=== PATIENT | female | born 1945 | race Caucasian/White ===

== ENCOUNTER 2018-06-29 13:56 | Inpatient (IN) | payer MEDICARE, OTHER ==
[~2018-06-29] VITALS: Ht 167.6 cm; Wt 97.8 kg
[~2018-06-29 13:56] MED LIST: ALBU90AE INH; ALPR-475 PO; ASPI-621 PO; ATOR20TA9 PO; ATOR40TA78 PO; CARV6.2512 PO; DEXA10PO2 PO; ISOS30TA8 PO; LEVE500T8 PO; LEVO137T2 PO; OXYB5TAB PO; PARO40TA61 PO; SULF1TAB24 PO; TEMO140C5 PO
[2018-06-29 14:48] LABS: BASOPHILS # (AUTO) 0.05 x10^3/uL (0-0.1); BASOPHILS % (AUTO) 0 % (0-1); EOSINOPHILS % (AUTO) 3 % (1-7); LYMPHOCYTES # (AUTO) 0.97 x10^3/uL (1-3.4); LYMPHOCYTES % (AUTO) 8 % (22-44); MD NO; MEAN CORPUSCULAR HGB CONC 34.9 g/dL (32.4-35.8); MEAN CORPUSCULAR VOLUME 91.6 fL (80-100); MEAN PLATELET VOLUME 8.1 fL (7.4-10.4); MONOCYTES # (AUTO) 0.87 x10^3/uL (0.2-0.8); MONOCYTES % (AUTO) 7 % (2-9); NEUTROPHILS # (AUTO) 9.93 x10^3/uL (1.8-6.8); NEUTROPHILS % (AUTO) 82 % (42-75); PLATELET COUNT 266 x10^3/uL (130-400); RED BLOOD COUNT 5.12 x10^6/uL (3.82-5.3); RED CELL DISTRIBUTION WIDTH 14.8 % (9.6-15.2)
[2018-06-29 14:53] LABS: ALBUMIN 3.8 g/dL (3.4-5.0); ANION GAP 10 mmol/L (5-15); CALCIUM 8.3 mg/dL (8.5-10.1); CHLORIDE 104 mmol/L (98-107)
[2018-06-29 14:55] LABS: MICROSCOPIC INDICATED
[2018-06-29 14:56] LABS: CULTURE INDICATED? YES
[2018-06-29 14:59] LABS: ALANINE AMINOTRANSFERASE 30 U/L (12-78); ALKALINE PHOSPHATASE 81 U/L (45-117); CREATININE 1.16 mg/dL (0.55-1.02); TOTAL PROTEIN 7.2 g/dL (6.4-8.2); TROPONIN I < 0.015 ng/mL (0.000-0.045)
[2018-06-29] MEDS ORDERED: HYDROcodone/APAP 5/325 TABLET PO PRN (18:00)
[2018-06-29] MEDS ORDERED: POLYETHYLENE GLYCOL 17 GM PACKET PO PRN (18:00)
[2018-06-29] MEDS ORDERED: NITROGLYCERIN 0.4 MG BOTTLE (25 TABS) SL PRN (18:00)
[2018-06-29] MEDS ORDERED: HYDROmorphone 2 MG/ML, 1ML IVPush PRN (18:00)
[2018-06-29] MEDS ORDERED: ONDANSETRON 2MG/ML, 2ML IVPush PRN (18:00)
[2018-06-29] MEDS ORDERED: TEMAZEPAM 15 MG CAPSULE PO PRN (18:00)
[2018-06-29] MEDS ORDERED: ACETAMINOPHEN 325 MG TABLET PO PRN (18:00)
[2018-06-29] MEDS ORDERED: hydrALAzine 20 MG/ML, 1ML IVPush PRN (18:00)
[2018-06-29 18:12] LABS: FREE T4 (FREE THYROXINE) 1.37 ng/dL (0.76-1.46); THYROID STIMULATING HORMONE 0.553 mIU/L (0.358-3.740)
[2018-06-29] MEDS ORDERED: PLEASE ENTER HEIGHT AND WEIGHT MC SCH (18:30)
[2018-06-29 19:20] VITALS: BP 125/73
[2018-06-29] MEDS: CARVEDILOL 6.25 MG TABLET PO SCH (21:00)
[2018-06-29] MEDS: PLEASE ENTER WEIGHT MC SCH ×2 (21:00→22:00)
[2018-06-29] MEDS: ATORVASTATIN 40 MG TABLET PO SCH (21:00)
[2018-06-29] MEDS: NICOTINE 14MG/24 HR PATCH.TD24 TD SCH (21:49)
[2018-06-29] MEDS: LEVETIRACETAM 500 MG TABLET PO SCH (21:49)
[2018-06-29] MEDS: OXYBUTYNIN CHLORIDE 5 MG TABLET PO SCH (22:00)
[2018-06-29 22:23] VITALS: BP 132/75
[2018-06-29 22:30] LABS: TROPONIN I < 0.015 ng/mL (0.000-0.045)
[2018-06-29] MEDS: HEPARIN 5,000 UNITS/ML, 1ML SQ SCH (22:57)
[2018-06-29] MEDS: CEFTRIAXONE 2 GM in SODIUM CHLORIDE 0.9% 50 ML IV SCH (23:24)
[2018-06-30 01:41] VITALS: BP 128/82
[2018-06-30 04:46] LABS: ALANINE AMINOTRANSFERASE 27 U/L (12-78); ALBUMIN 3.4 g/dL (3.4-5.0); ANION GAP 8 mmol/L (5-15); CALCIUM 8.2 mg/dL (8.5-10.1); CHLORIDE 107 mmol/L (98-107); CREATININE 0.84 mg/dL (0.55-1.02)
[2018-06-30 04:55] LABS: TROPONIN I < 0.015 ng/mL (0.000-0.045)
[2018-06-30 04:56] LABS: ALKALINE PHOSPHATASE 71 U/L (45-117); BILIRUBIN,TOTAL 0.9 mg/dL (0.2-1.0); THYROID STIMULATING HORMONE 0.485 mIU/L (0.358-3.740); TOTAL PROTEIN 6.6 g/dL (6.4-8.2)
[2018-06-30] MEDS: LEVOTHYROXINE 137 MCG TABLET PO SCH (06:01)
[2018-06-30] MEDS: ASPIRIN 81 MG TABLET EC PO SCH (06:01)
[2018-06-30] MEDS: HEPARIN 5,000 UNITS/ML, 1ML SQ SCH ×3 (06:02→21:09)
[2018-06-30 06:55] VITALS: BP 138/83
[2018-06-30] MEDS: LEVETIRACETAM 500 MG TABLET PO SCH ×2 (08:03→21:08)
[2018-06-30] MEDS: OXYBUTYNIN CHLORIDE 5 MG TABLET PO SCH ×2 (08:03→21:07)
[2018-06-30] MEDS: ISOSORBIDE MONONITRATE ER 30 MG TABLET PO SCH (08:03)
[2018-06-30] MEDS: PAROXETINE 20 MG TABLET PO SCH (08:03)
[2018-06-30] MEDS: DEXAMETHASONE 1 MG TABLET PO SCH (08:03)
[2018-06-30] MEDS: CARVEDILOL 6.25 MG TABLET PO SCH ×2 (08:03→21:07)
[2018-06-30] MEDS: PANTOPROZOLE 40MG TABLET PO SCH (08:03)
[2018-06-30] MEDS ORDERED: TEMOZOLOMIDE MC SCH (08:30)
[2018-06-30] MEDS ORDERED: TEMOZOLOMIDE PO SCH (09:00)
[2018-06-30] MEDS ORDERED: SODIUM CHLORIDE 0.9% 1,000 ML IV ONE (11:03)
[2018-06-30] MEDS ORDERED: FENTANYL PF 100 MCG/2ML ONE (13:37)
[2018-06-30] MEDS ORDERED: HEPARIN 1,000 UNITS/ML, 10ML ONE (13:38)
[2018-06-30] MEDS ORDERED: BIVALIRUDIN 250 MG ONE (13:38)
[2018-06-30] MEDS ORDERED: MIDAZOLAM 1 MG/ML, 2ML ONE (13:38)
[2018-06-30] MEDS ORDERED: VERAPAMIL 2.5 MG/ML, 2ML ONE (13:38)
[2018-06-30] MEDS ORDERED: TICAGRELOR 90 MG TABLET ONE (13:38)
[2018-06-30] MEDS ORDERED: SERT100T5 PO (13:43)
[2018-06-30 14:30] VITALS: BP 122/70
[2018-06-30 20:45] VITALS: BP 129/77
[2018-06-30] MEDS: NICOTINE 14MG/24 HR PATCH.TD24 TD SCH (21:08)
[2018-06-30] MEDS: ATORVASTATIN 40 MG TABLET PO SCH (21:08)
[2018-06-30] MEDS: NYSTATIN 500,000 UNITS/5 ML UDC PO SCH (21:08)
[2018-06-30] MEDS: CEFTRIAXONE 2 GM in SODIUM CHLORIDE 0.9% 50 ML IV SCH (21:10)
[2018-07-01 00:39] VITALS: BP 119/63
[2018-07-01] MEDS: LEVOTHYROXINE 137 MCG TABLET PO SCH (05:44)
[2018-07-01] MEDS: ASPIRIN 81 MG TABLET EC PO SCH (05:44)
[2018-07-01] MEDS: HEPARIN 5,000 UNITS/ML, 1ML SQ SCH (05:44)
[2018-07-01 07:00] VITALS: BP 141/79
[2018-07-01] MEDS: NYSTATIN 500,000 UNITS/5 ML UDC PO SCH (08:24)
[2018-07-01] MEDS: PANTOPROZOLE 40MG TABLET PO SCH (08:25)
[2018-07-01] MEDS: CARVEDILOL 6.25 MG TABLET PO SCH (08:25)
[2018-07-01] MEDS: OXYBUTYNIN CHLORIDE 5 MG TABLET PO SCH (08:25)
[2018-07-01] MEDS: DEXAMETHASONE 1 MG TABLET PO SCH (08:25)
[2018-07-01] MEDS: ISOSORBIDE MONONITRATE ER 30 MG TABLET PO SCH (08:25)
[2018-07-01] MEDS: LEVETIRACETAM 500 MG TABLET PO SCH (08:25)
[2018-07-01] MEDS: PAROXETINE 20 MG TABLET PO SCH (08:33)
[2018-07-01] MEDS ORDERED: NICO-486 TD (11:15)
[2018-07-01] MEDS ORDERED: METO25TA35 PO (11:15)
[2018-07-01] MEDS ORDERED: PANT40TA5 PO (11:15)
[2018-07-01] MEDS ORDERED: NYST1000 PO (11:15)
[2018-07-01] MEDS ORDERED: CEFTRIAXONE 2 GM in SODIUM CHLORIDE 0.9% 50 ML IV SCH (12:00)
[2018-07-01] MEDS ORDERED: CEFTRIAXONE 2 GM in SODIUM CHLORIDE 0.9% 100 ML IV SCH (12:00)
[2018-07-01 13:45] VITALS: BP 125/79
== END 2018-07-01 14:10 | disposition home or self-care (01) | DRG 286 ==
LOC: ED 17:01 → EDIP 17:02 → ED 17:21 → 5SO 18:14 → DCLOUNGE 07-01 14:02
PROVIDERS: ADMIT Internal Medicine; ATTEND Internal Medicine
PROC: 4A023N7 Measurement of Cardiac Sampling and Pressure, Left Heart, Percutaneous Approach (ICD-10-PCS; principal; 2018-06-30)
PROC: B2111ZZ Fluoroscopy of Multiple Coronary Arteries using Low Osmolar Contrast (ICD-10-PCS; 2018-06-30)
PROC: B2151ZZ Fluoroscopy of Left Heart using Low Osmolar Contrast (ICD-10-PCS; 2018-06-30)
DX: I20.9 Angina pectoris, unspecified (principal); N17.0 Acute kidney failure with tubular necrosis; N39.0 Urinary tract infection, site not specified; C71.9 Malignant neoplasm of brain, unspecified; E66.01 Morbid (severe) obesity due to excess calories; E78.5 Hyperlipidemia, unspecified; E89.0 Postprocedural hypothyroidism; F17.210 Nicotine dependence, cigarettes, uncomplicated; F32.9 Major depressive disorder, single episode, unspecified; G89.29 Other chronic pain; I25.2 Old myocardial infarction; J44.9 Chronic obstructive pulmonary disease, unspecified; R32 Unspecified urinary incontinence; Z66 Do not resuscitate; Z80.0 Family history of malignant neoplasm of digestive organs; Z82.49 Family history of ischemic heart disease and other diseases of the circulatory system; Z85.841 Personal history of malignant neoplasm of brain; Z85.850 Personal history of malignant neoplasm of thyroid; Z90.710 Acquired absence of both cervix and uterus; Z92.21 Personal history of antineoplastic chemotherapy; Z92.3 Personal history of irradiation; Z68.34 Body mass index [BMI] 34.0-34.9, adult
CPT/HCPCS: 36415; 71045; 80053; 81001; 83880; 84439; 84443; 84484; 85025; 85379; 87040; 87086; 93005; 93458; 99156; 99285; C1769; C1894; J0583; J0696; J1644; J2250; J3010; J7030; Q9967

== ENCOUNTER 2019-02-28 20:03 | Inpatient (IN) | payer MEDICARE, OTHER ==
[~2019-02-28] VITALS: Ht 172.7 cm; Wt 105.0 kg
[~2019-02-28 20:03] MED LIST changes: -ASPI-621 PO; +ASPI81TA45 PO; +ATOR20TA37 PO; -ATOR20TA9 PO; +METO25TA35 PO; +NICO-486 TD; +NYST1000 PO; +PANT40TA5 PO; +SERT100T32 PO
[2019-02-28] MEDS ORDERED: LORA10TA75 PO (20:19)
[2019-02-28] MEDS ORDERED: REGO40TA PO (20:19)
--- NOTE | 2019-02-28 20:20 | NUR ---
TASK RN: CHRISTINA VELASQUEZ FOR C/O LEFT RIB PAIN AFTER A GLF. FALL WITNESSED BY GRANDSON WHO KEPT PT. FROM HITTING HER HEAD DURING THE FALL. PT. REPORTS "I GOT DIZZY AND FELL". HX OF GLIOBLASTOMA. A&O X 3 AND AT BASELINE. GROSS NEUOR INTACT. IV PLACED EN ROUTE BY EMS. DAUGHTER AT BS IS POA. PT. REPORTS PAIN IS 5/10 AT IT'S WORST BUT WHEN SITTING STILL ONLY 1/10. CONTINUOUS PULSE OX, B/P, AND HEART MONITORS PLACED. CALL LIGHT IN REACH. ALL SAFETY MEASURES OBSERVED. REPORT TO WILLIE SUTHERLAND RN TO ASSUME PT. CARE.
--- NOTE | 2019-02-28 20:35 | NUR ---
AT BEDSIDE FOR ASSESSMENT. REPORT RECEIVED FROM ARIANNA BENÍTEZ, ASSUMING CARE OF PT.
--- NOTE | 2019-02-28 20:48 | NUR ---
PT TAKEN TO CT
[2019-02-28] MEDS ORDERED: SODIUM CHLORIDE FLUSH 10ML SYR IVF ONE (21:00)
--- NOTE | 2019-02-28 21:03 | NUR ---
BACK FROM CT. PT REPORTING RIGHT FOOT CRAMPING, WARM BLANKET APPLIED. WILL CONTINUE TO MONITOR. FAMILY AT BEDSIDE. CALL LIGHT WITHIN REACH
[2019-02-28 21:24] LABS: BASOPHILS # (AUTO) 0.04 x10^3/uL (0-0.1); BASOPHILS % (AUTO) 0 % (0-1); EOSINOPHILS # (AUTO) 0.04 x10^3/uL (0-0.4); EOSINOPHILS % (AUTO) 0 % (1-7); LYMPHOCYTES # (AUTO) 1.26 x10^3/uL (1-3.4); LYMPHOCYTES % (AUTO) 12 % (22-44); MD NO; MEAN CORPUSCULAR HEMOGLOBIN 29.1 pg (27.0-34.8); MEAN CORPUSCULAR HGB CONC 32.7 g/dL (32.4-35.8); MEAN CORPUSCULAR VOLUME 89.2 fL (80-100); MEAN PLATELET VOLUME 7.6 fL (7.4-10.4); MONOCYTES # (AUTO) 0.66 x10^3/uL (0.2-0.8); MONOCYTES % (AUTO) 6 % (2-9); NEUTROPHILS # (AUTO) 8.89 x10^3/uL (1.8-6.8); NEUTROPHILS % (AUTO) 82 % (42-75); PLATELET COUNT 285 x10^3/uL (130-400); RED BLOOD COUNT 4.46 x10^6/uL (3.82-5.3)
[2019-02-28 21:38] LABS: ALANINE AMINOTRANSFERASE 38 U/L (12-78); ALBUMIN 3.4 g/dL (3.4-5.0); ANION GAP 7 mmol/L (5-15); CALCIUM 8.5 mg/dL (8.5-10.1); CHLORIDE 104 mmol/L (98-107); CREATININE 0.96 mg/dL (0.55-1.02)
[2019-02-28 21:43] LABS: ALKALINE PHOSPHATASE 75 U/L (45-117); BILIRUBIN,TOTAL 0.8 mg/dL (0.2-1.0); TOTAL PROTEIN 6.4 g/dL (6.4-8.2); TROPONIN I < 0.015 ng/mL (0.000-0.045)
--- NOTE | 2019-02-28 21:46 | NUR ---
ALL RESULTS BACK AT THIS TIME, CHART UP FOR RECHECK
--- NOTE | 2019-02-28 21:59 | NUR ---
PT REPORTING CONTINUED PAIN IN LEFT RIB AREA, MD UPDATED, NO ADDITIONAL ORDERS RECEIVED AT THIS TIME
[2019-02-28] MEDS ORDERED: LEVETIRACETAM 1,000 MG in SODIUM CHLORIDE 0.9% 100 ML IV ONE (22:00)
--- NOTE | 2019-02-28 22:03 | NUR ---
HOSPITALIST AND ER MD AT BEDSIDE TO UPDATE PT AND FAMILY ON POC.
--- NOTE | 2019-02-28 22:12 | NUR ---
PHARM CALLED FOR [facility], STATES WILL BE SENT SOON
[2019-02-28] MEDS ORDERED: MORPHINE SULFATE 4 MG/ML, 1ML ONE (22:15)
[2019-02-28] MEDS ORDERED: HYDROcodone/APAP 5/325 TABLET ONE (22:23)
--- NOTE | 2019-02-28 22:27 | NUR ---
PT MEDICATED FOR PAIN ABD 05/08. SIDE RAILS UP AND CALL LIGHT IN PLACE
[2019-02-28] MEDS ORDERED: SODIUM CHLORIDE FLUSH 10ML SYR IVF PRN (22:30)
[2019-02-28] MEDS ORDERED: HYDROcodone/APAP 5/325 TABLET PO ONE (22:30)
--- NOTE | 2019-02-28 22:33 | NUR ---
REPORT GIVEN TO FRANCO RN, PT READY FOR TRANSPORT TO FLOOR
[2019-02-28 22:52] VITALS: BP 144/81
[2019-02-28] MEDS: HYDROcodone/APAP 5/325 TABLET PO PRN (23:17)
[2019-02-28] MEDS ORDERED: STIVARGA MC SCH (23:30)
[2019-03-01] VITALS: BP 109/69
[2019-03-01] MEDS: HYDROcodone/APAP 5/325 TABLET PO PRN ×4 (05:07→20:27)
[2019-03-01] MEDS: LEVOTHYROXINE 137 MCG TABLET PO SCH (05:08)
[2019-03-01 05:34] LABS: BASOPHILS # (AUTO) 0.05 x10^3/uL (0-0.1); BASOPHILS % (AUTO) 1 % (0-1); EOSINOPHILS # (AUTO) 0.22 x10^3/uL (0-0.4); EOSINOPHILS % (AUTO) 3 % (1-7); LYMPHOCYTES # (AUTO) 1.22 x10^3/uL (1-3.4); LYMPHOCYTES % (AUTO) 14 % (22-44); MD NO; MEAN CORPUSCULAR HEMOGLOBIN 30.3 pg (27.0-34.8); MEAN CORPUSCULAR HGB CONC 34.3 g/dL (32.4-35.8); MEAN CORPUSCULAR VOLUME 88.5 fL (80-100); MEAN PLATELET VOLUME 7.7 fL (7.4-10.4); MONOCYTES # (AUTO) 0.83 x10^3/uL (0.2-0.8); MONOCYTES % (AUTO) 9 % (2-9); NEUTROPHILS # (AUTO) 6.59 x10^3/uL (1.8-6.8); NEUTROPHILS % (AUTO) 74 % (42-75); PLATELET COUNT 244 x10^3/uL (130-400); RED BLOOD COUNT 4.02 x10^6/uL (3.82-5.3); RED CELL DISTRIBUTION WIDTH 16.6 % (9.6-15.2)
[2019-03-01 05:44] LABS: ANION GAP 7 mmol/L (5-15); CALCIUM 8.2 mg/dL (8.5-10.1); CHLORIDE 106 mmol/L (98-107)
[2019-03-01 05:49] LABS: CREATININE 0.92 mg/dL (0.55-1.02); TROPONIN I < 0.015 ng/mL (0.000-0.045)
[2019-03-01] MEDS ORDERED: MAGNESIUM SULFATE PMX 4GM/100M 100 ML IV ONE (07:00)
[2019-03-01 07:33] VITALS: BP 111/65
[2019-03-01] MEDS ORDERED: LORazepam 0.5MG TABLET PO ONE (08:00)
[2019-03-01] MEDS: REGORAFENIB 40 MG HOMEMEDPO SCH (09:00)
[2019-03-01] MEDS: SERTRALINE 100MG TABLET PO SCH (09:36)
[2019-03-01] MEDS: LORATADINE 10 MG TABLET PO SCH (09:36)
[2019-03-01] MEDS: POTASSIUM CHLORIDE 20 MEQ TAB.ER.PRT PO SCH ×2 (09:37→20:28)
[2019-03-01] MEDS: DEXAMETHASONE 1 MG TABLET PO SCH ×2 (09:37→20:28)
[2019-03-01] MEDS: LEVETIRACETAM 500 MG TABLET PO SCH ×2 (09:41→20:27)
[2019-03-01] MEDS ORDERED: LORazepam 0.5MG TABLET ONE (14:39)
[2019-03-01] MEDS ORDERED: GADOBUTROL 10 MMOL/10 ML PFS ONE (15:57)
[2019-03-01 16:49] VITALS: BP 123/57
[2019-03-01 19:01] VITALS: BP 118/80
[2019-03-01] MEDS: DOCUSATE 100 MG CAPSULE PO SCH (20:27)
[2019-03-01] MEDS: ATORVASTATIN 40 MG TABLET PO SCH (20:28)
[2019-03-02 00:50] VITALS: BP 127/81
[2019-03-02 04:53] LABS: ANION GAP 3 mmol/L (5-15); CALCIUM 8.4 mg/dL (8.5-10.1); CHLORIDE 108 mmol/L (98-107)
[2019-03-02 04:56] LABS: CREATININE 0.78 mg/dL (0.55-1.02)
[2019-03-02] MEDS: LEVOTHYROXINE 137 MCG TABLET PO SCH (05:19)
[2019-03-02 06:35] VITALS: BP 122/79
[2019-03-02] MEDS: DOCUSATE 100 MG CAPSULE PO SCH ×2 (08:12→20:28)
[2019-03-02] MEDS: POLYETHYLENE GLYCOL 17 GM PACKET PO SCH (08:12)
[2019-03-02] MEDS: LORATADINE 10 MG TABLET PO SCH (08:13)
[2019-03-02] MEDS: DEXAMETHASONE 1 MG TABLET PO SCH ×2 (08:13→20:29)
[2019-03-02] MEDS: LEVETIRACETAM 500 MG TABLET PO SCH ×2 (08:13→20:28)
[2019-03-02] MEDS: SERTRALINE 100MG TABLET PO SCH (08:13)
[2019-03-02] MEDS: REGORAFENIB 40 MG HOMEMEDPO SCH (08:14)
[2019-03-02] MEDS: HYDROcodone/APAP 5/325 TABLET PO PRN ×3 (09:36→20:28)
[2019-03-02 12:20] VITALS: BP 130/77
[2019-03-02 14:40] LABS: THYROID STIMULATING HORMONE 0.837 mIU/L (0.358-3.740)
[2019-03-02] MEDS: SODIUM CHLORIDE 0.9% 1,000 ML IV SCH (15:07)
[2019-03-02 19:04] VITALS: BP 122/85
[2019-03-02] MEDS: ATORVASTATIN 40 MG TABLET PO SCH (20:28)
[2019-03-03 00:41] VITALS: BP 105/62
[2019-03-03] MEDS: HYDROcodone/APAP 5/325 TABLET PO PRN ×4 (04:24→20:09)
[2019-03-03] MEDS: LEVOTHYROXINE 137 MCG TABLET PO SCH (04:25)
[2019-03-03] MEDS: SODIUM CHLORIDE 0.9% 1,000 ML IV SCH ×2 (04:25→17:07)
[2019-03-03 04:45] LABS: BASOPHILS # (AUTO) 0.02 x10^3/uL (0-0.1); BASOPHILS % (AUTO) 0 % (0-1); EOSINOPHILS # (AUTO) 0.02 x10^3/uL (0-0.4); EOSINOPHILS % (AUTO) 0 % (1-7); LYMPHOCYTES # (AUTO) 0.91 x10^3/uL (1-3.4); LYMPHOCYTES % (AUTO) 11 % (22-44); MD NO; MEAN CORPUSCULAR HGB CONC 33.4 g/dL (32.4-35.8); MEAN CORPUSCULAR VOLUME 89.7 fL (80-100); MEAN PLATELET VOLUME 7.9 fL (7.4-10.4); MONOCYTES # (AUTO) 0.66 x10^3/uL (0.2-0.8); MONOCYTES % (AUTO) 8 % (2-9); NEUTROPHILS # (AUTO) 6.55 x10^3/uL (1.8-6.8); NEUTROPHILS % (AUTO) 80 % (42-75); PLATELET COUNT 242 x10^3/uL (130-400); RED BLOOD COUNT 3.98 x10^6/uL (3.82-5.3); RED CELL DISTRIBUTION WIDTH 16.8 % (9.6-15.2)
[2019-03-03 04:53] LABS: ANION GAP 5 mmol/L (5-15); CALCIUM 8.8 mg/dL (8.5-10.1); CHLORIDE 106 mmol/L (98-107)
[2019-03-03 04:59] LABS: ALANINE AMINOTRANSFERASE 29 U/L (12-78); ALKALINE PHOSPHATASE 69 U/L (45-117); BILIRUBIN,TOTAL 0.7 mg/dL (0.2-1.0); CREATININE 0.64 mg/dL (0.55-1.02); TOTAL PROTEIN 6.2 g/dL (6.4-8.2)
[2019-03-03] MEDS: POLYETHYLENE GLYCOL 17 GM PACKET PO SCH (07:28)
[2019-03-03] MEDS: LORATADINE 10 MG TABLET PO SCH (08:10)
[2019-03-03] MEDS: DOCUSATE 100 MG CAPSULE PO SCH ×2 (08:10→20:03)
[2019-03-03] MEDS: DEXAMETHASONE 1 MG TABLET PO SCH ×2 (08:10→20:04)
[2019-03-03] MEDS: SERTRALINE 100MG TABLET PO SCH (08:11)
[2019-03-03] MEDS: REGORAFENIB 40 MG HOMEMEDPO SCH (08:11)
[2019-03-03] MEDS: LEVETIRACETAM 500 MG TABLET PO SCH ×2 (08:11→20:04)
[2019-03-03] MEDS ORDERED: BISACODYL 10 MG SUPP PR PRN (08:30)
[2019-03-03 09:43] VITALS: BP 128/77
[2019-03-03 14:04] VITALS: BP 129/79
[2019-03-03 19:09] VITALS: BP 145/85
[2019-03-03] MEDS: ATORVASTATIN 40 MG TABLET PO SCH (20:03)
[2019-03-03] MEDS ORDERED: KETOROLAC 30 MG/1 ML IVPush PRN (22:30)
[2019-03-04 01:28] VITALS: BP 132/78
[2019-03-04 05:38] LABS: BASOPHILS # (AUTO) 0.02 x10^3/uL (0-0.1); BASOPHILS % (AUTO) 0 % (0-1); EOSINOPHILS # (AUTO) 0.04 x10^3/uL (0-0.4); EOSINOPHILS % (AUTO) 1 % (1-7); LYMPHOCYTES # (AUTO) 0.88 x10^3/uL (1-3.4); LYMPHOCYTES % (AUTO) 13 % (22-44); MD NO; MEAN CORPUSCULAR HEMOGLOBIN 30.6 pg (27.0-34.8); MEAN CORPUSCULAR HGB CONC 34.5 g/dL (32.4-35.8); MEAN CORPUSCULAR VOLUME 88.8 fL (80-100); MONOCYTES # (AUTO) 0.46 x10^3/uL (0.2-0.8); MONOCYTES % (AUTO) 7 % (2-9); NEUTROPHILS # (AUTO) 5.59 x10^3/uL (1.8-6.8); NEUTROPHILS % (AUTO) 80 % (42-75); PLATELET COUNT 220 x10^3/uL (130-400); RED BLOOD COUNT 3.66 x10^6/uL (3.82-5.3); RED CELL DISTRIBUTION WIDTH 16.3 % (9.6-15.2)
[2019-03-04 05:43] LABS: ALBUMIN 2.7 g/dL (3.4-5.0); ANION GAP 6 mmol/L (5-15); CALCIUM 8.1 mg/dL (8.5-10.1); CHLORIDE 109 mmol/L (98-107); CREATININE 0.74 mg/dL (0.55-1.02)
[2019-03-04] MEDS: LEVOTHYROXINE 137 MCG TABLET PO SCH (06:33)
[2019-03-04] MEDS: SODIUM CHLORIDE 0.9% 1,000 ML IV SCH (06:34)
[2019-03-04 07:56] VITALS: BP 177/98
[2019-03-04] MEDS: REGORAFENIB 40 MG HOMEMEDPO SCH (09:00)
[2019-03-04] MEDS: POLYETHYLENE GLYCOL 17 GM PACKET PO SCH (10:25)
[2019-03-04] MEDS: DEXAMETHASONE 1 MG TABLET PO SCH ×2 (10:26→21:39)
[2019-03-04] MEDS: DOCUSATE 100 MG CAPSULE PO SCH ×2 (10:26→21:39)
[2019-03-04] MEDS: LEVETIRACETAM 500 MG TABLET PO SCH ×2 (10:26→21:38)
[2019-03-04] MEDS: LORATADINE 10 MG TABLET PO SCH (10:27)
[2019-03-04] MEDS: SERTRALINE 100MG TABLET PO SCH (10:27)
[2019-03-04 12:19] VITALS: BP 153/99
[2019-03-04 21:02] VITALS: BP 141/86
[2019-03-04] MEDS: ATORVASTATIN 40 MG TABLET PO SCH (21:38)
[2019-03-04] MEDS: HYDROcodone/APAP 5/325 TABLET PO PRN (21:39)
[2019-03-04] MEDS: OXYBUTYNIN CHLORIDE 5 MG TABLET PO SCH (22:53)
[2019-03-05 03:21] VITALS: BP 116/75
[2019-03-05] MEDS: LEVOTHYROXINE 137 MCG TABLET PO SCH (05:54)
[2019-03-05 06:40] VITALS: BP 135/89
[2019-03-05] MEDS: POLYETHYLENE GLYCOL 17 GM PACKET PO SCH (08:01)
[2019-03-05] MEDS: DOCUSATE 100 MG CAPSULE PO SCH (08:02)
[2019-03-05] MEDS: LEVETIRACETAM 500 MG TABLET PO SCH (08:02)
[2019-03-05] MEDS: REGORAFENIB 40 MG HOMEMEDPO SCH (08:02)
[2019-03-05] MEDS: OXYBUTYNIN CHLORIDE 5 MG TABLET PO SCH (08:02)
[2019-03-05] MEDS: DEXAMETHASONE 1 MG TABLET PO SCH (08:02)
[2019-03-05] MEDS: LORATADINE 10 MG TABLET PO SCH (08:02)
[2019-03-05] MEDS: SERTRALINE 100MG TABLET PO SCH (08:02)
[2019-03-05] MEDS ORDERED: DEXA1TAB5 PO (09:37)
== END 2019-03-05 12:00 | disposition home or self-care (01) | DRG 54 ==
LOC: ED 21:05 → EDIP 22:08 → 4NOR 23:01 → 3NW 03-01 11:11
PROVIDERS: ADMIT Internal Medicine; ATTEND Internal Medicine
DX: C71.9 Malignant neoplasm of brain, unspecified (principal); G92 Toxic encephalopathy; G40.209 Localization-related (focal) (partial) symptomatic epilepsy and epileptic syndromes with complex partial seizures, not intractable, without status epilepticus; I50.32 Chronic diastolic (congestive) heart failure; J98.11 Atelectasis; K56.7 Ileus, unspecified; E83.42 Hypomagnesemia; E87.6 Hypokalemia; E89.0 Postprocedural hypothyroidism; F17.290 Nicotine dependence, other tobacco product, uncomplicated; I25.2 Old myocardial infarction; J44.9 Chronic obstructive pulmonary disease, unspecified; Z66 Do not resuscitate; Z79.899 Other long term (current) drug therapy; Z80.0 Family history of malignant neoplasm of digestive organs; Z82.49 Family history of ischemic heart disease and other diseases of the circulatory system; Z85.841 Personal history of malignant neoplasm of brain; Z90.49 Acquired absence of other specified parts of digestive tract; Z92.21 Personal history of antineoplastic chemotherapy; Z92.3 Personal history of irradiation; Z88.6 Allergy status to analgesic agent; Z88.0 Allergy status to penicillin; F03.90 Unspecified dementia, unspecified severity, without behavioral disturbance, psychotic disturbance, mood disturbance, and anxiety; F32.9 Major depressive disorder, single episode, unspecified
CPT/HCPCS: 36415; 70450; 70553; 71045; 74018; 74177; 80048; 80053; 82040; 83605; 83735; 84100; 84443; 84484; 85025; 93005; 95819; 96365; A9585; G0378; J1885; J1953; J3475; J7030

== ENCOUNTER 2019-07-07 09:53 | Outpatient (CLI) | payer MEDICARE, OTHER | END 2019-07-07 23:59 | disposition home or self-care (01) | LOC: RAD 09:53 | PROVIDERS: ATTEND Internal Medicine Hematology & Oncology | DX: C71.9 Malignant neoplasm of brain, unspecified (principal); R22.0 Localized swelling, mass and lump, head | CPT/HCPCS: 70553; A9585 ==

== ENCOUNTER 2019-12-12 12:46 | Outpatient (CLI) | payer MEDICARE, OTHER ==
[~2019-12-12 12:46] MED LIST changes: -ALPR-475 PO; +ALPR0.5T7 PO; +DEXA1TAB5 PO; +LORA10TA75 PO; +OXYB-39 PO; -OXYB5TAB PO; +REGO40TA PO
[2019-12-12] MEDS ORDERED: GADOTERATE 10 MMOL/20 ML SYR ONE (13:33)
== END 2019-12-12 23:59 | disposition home or self-care (01) ==
LOC: CFH 12:46
PROVIDERS: ATTEND Internal Medicine Hematology & Oncology
DX: Z51.12 Encounter for antineoplastic immunotherapy (principal); C71.9 Malignant neoplasm of brain, unspecified; C71.8 Malignant neoplasm of overlapping sites of brain; R82.90 Unspecified abnormal findings in urine
CPT/HCPCS: 70553; A9575